=== PATIENT | female | born 1935 | race Caucasian/White ===

== ENCOUNTER → 2020-11-13 | Outpatient (CLI) | payer MEDICARE ==
--- NOTE | 2020-11-15 09:01 | RESP ---
DATE OF SERVICE: 11/13/2020 PULMONARY FUNCTION TEST ATTENDING PHYSICIAN: Dr. Jessica Reyes. The patient's FVC was 2.78, which is 103% predicted. FEV1 is 2.2, which is 110% of predicted. FEV1/FVC ratio was normal. No bronchodilators given. There was some difficulty with following the PFT technique due to language barrier. As a result lung volumes may not be reliable. Total lung capacity was 203% predicted and residual volume 345% predicted. Diffusion capacity was normal. IMPRESSION: 1. No obstructive airway disease. 2. No bronchodilators given. 3. Lung volumes consistent with hyperinflation. They may not be as reliable due to inadequate technique. 4. Normal diffusion capacity. CARLOS/HOWARD DR: Allyssa TID: [id number]
== END ==
LOC: PF 08:39
PROVIDERS: ATTEND Internal Medicine
DX: R06.02 Shortness of breath (principal)
CPT/HCPCS: 94010; 94726; 94729